=== PATIENT | male | born 1975 | race Caucasian/White ===

== ENCOUNTER → 2018-08-26 | Outpatient (CLI) | payer BC | LOC: ULTRA 10:12 | DX: I27.82 Chronic pulmonary embolism (principal); M79.89 Other specified soft tissue disorders; M79.605 Pain in left leg; R06.02 Shortness of breath ==

== ENCOUNTER → 2018-09-02 | Outpatient (CLI) | payer BC | LOC: ULTRA 12:50 | DX: N63.10 Unspecified lump in the right breast, unspecified quadrant (principal) ==

== ENCOUNTER → 2021-02-22 | Outpatient (CLI) | payer BC ==
[~2021-02-22] VITALS: Ht 182.9 cm; Wt 99.8 kg
[~2021-02-22] MED LIST: CHILDREN'S ASPI81 M1 PO; QVAR REDIHALE10.6 GM INH; UNICOMPLEX M TA1 TA1 PO; ZESTRIL40 MG PO
[2021-02-22 08:07] VITALS: BP 142/92
--- NOTE | 2021-02-22 08:18 | NUR ---
Pain Clinic Assessment: 1. History of Osteoarthritis: RIGHT ELBOW History of Rheumatoid Arthritis: Not Applicable 2. Height: 6 ft. in. 182.9 cm. Weight: 220.0 lb. oz. 99.792 kg. Patient's BMI: 29.8 3. Vital Signs: BP: 142/92 Pulse: 78 Resp: 20 Temp: 02 Sat: 98 ECG Mon: 4. Pain Intensity: 4 5. Fall Risk: Dizziness: N Needs help standing or walking: N Fallen in the last 3 months: N Fall risk comments: 6. Patient on Blood Thinner: None 7. History of Hypertension: Y 8. Opioid Therapy greater than 6 weeks: N Opiate Contract Signed: 9. Risk Assessment Tool Provided: 0-LOW RISK 10. Functional Assessment Tool: 11. Recreational Drug Use: Never Drug Type: Tobacco Use: Never Smoker Tobacco Type: Amount or Packs/day: How Many Years: Alcohol Use: Yes Frequency: Weekly Quant: ABOUT 6
--- NOTE | 2021-03-01 07:49 | HPC ---
[facility] [place] [address] PAIN MANAGEMENT CONSULTATION Name: JEF CASTAÑEDA [facility] #[facility] [id number] Admission: 02/22/21 Attend Phys: Marcos Gonzalez DO Discharge: Date of : 77 Report #: [id number] THIS REPORT FOR: cc: Emma Foley MD, Nora P. MD Johnson, James E. DO ~ DOC #: [id number] cc: OTIS Donaldson DO DATE OF SERVICE: 02/22/2021 REFERRING SUPPLY TECHNICIAN: Rin Alcantara. CHIEF COMPLAINT: Neck pain, left upper extremity pain with paresthesias. HISTORY OF PRESENT ILLNESS: As you know, the patient is a very pleasant 45-year-old male who reports acute onset of neck pain, left upper extremity pain with paresthesias that presented approximately 3 months ago. He has had intermittent electrical like shooting sensations that radiate from the neck to just below the elbow on a classic C5 dermatomal distribution. The patient has trialed conservative treatment, undergoing physical therapy for which he continues to be seen with PT with improvement in symptoms. It has been somewhat helpful, but he continues to experience intermittent symptoms such that the patient then sought further evaluation through his primary care physician who sent him off for MRI imaging. MRI was obtained, yet the patient has not been able to return to see the primary team to review those findings. He was subsequently referred to our clinic. The patient reports today his pain is intermittent and momentary. He describes the pain as shooting, sharp, stabbing, numbness and tingling. Places current pain score 4/10, daily average of 5-6/10. Worst pain has been a 7-8/10. The patient states pain is exacerbated with any type of movement, improves with rest and relaxation. He has noted some improvement with traction at physical therapy. He has been referred to our service to discuss treatment options for cervical radiculopathy, unresponsive to physical therapy and conservative [id number] medication management. PAST MEDICAL HISTORY: 1. Hypertension. 2. Asthma. 3. Osteoarthritis. PAST SURGICAL HISTORY: Left elbow surgery. SOCIAL HISTORY: The patient denies tobacco, IV or illicit drug use. Admits to one alcoholic beverage per day. He is working, not receiving workmenSensipasss [address] [address] PAIN MANAGEMENT CONSULTATION Name: JEF CASTAÑEDA Room #: REG [facility].#: [id number] Admission: 02/22/21 Attend Phys: Marcos Gonzalez DO Discharge: Date of : 77 Report #: [id number] compensation nor is he trying to obtain disability benefits. He is not in litigation in regards to the pain. He is unaccompanied at today's visit. REVIEW OF SYSTEMS: Positive for neck pain, left upper extremity pain with paresthesias, hearing loss with tinnitus, asthma, wheezing, hypertension. All other review of systems negative per 12-point review of systems other than those listed in history of present illness. Pain impact score 29/70 indicating moderate interference of daily activities secondary to pain. ALLERGIES: MUSCLE RELAXANTS. CURRENT MEDICATIONS: Lisinopril 40 mg once a day, aspirin 81 mg per day, Qvar inhaled twice a day, multivitamin one tab per day. IMAGING: MRI of the cervical spine obtained 02/14/2021 shows C2-C3 unremarkable, C3-C4 unremarkable, C4-C5 shows moderate left and mild right neural foraminal stenosis. There is no mass effect upon the central canal. C5-C6 shows uncovertebral spurring, mild left and moderate right neural foraminal narrowing. C6-C7 unremarkable. C7-T1 unremarkable. PHYSICAL EXAMINATION: VITAL SIGNS: Blood pressure 142/92, pulse 78, respiratory rate 20, unlabored. The patient 98% on room air, height 6 feet tall, weight 220 pounds, BMI calculated 29.8. GENERAL: Well-developed, well-nourished, well-hydrated 45-year-old male appearing stated age, placing current pain score 4/10. HEENT: Normocephalic, atraumatic. Pupils are round and responsive. Extraocular muscles are intact. The patient is wearing a mask in compliance with COVID-19 regulations. LUNGS: Appear clear. There is no audible wheezing, rhonchi or rales. No cough. No respiratory depression or stress. HEART: Regular. No appreciable gallop, no rub. ABDOMEN: Soft. EXTREMITIES: No clubbing, no cyanosis and no edema. MUSCULOSKELETAL: Upper extremity strength equal and symmetrical 5/5. Muscle bulk and tone equal and symmetrical in comparing left upper extremity to right. Spurling's test positive on the left, negative right. Cervical provocation testing with lateral flexion to the left causes typical electrical-like sensation radiating just distal to the elbow consistent with a C5 dermatome. Rotation to the left causes intensification of neck pain. No radiation of symptoms. Symptoms are resolved with rotation to the right or lateral flexion to the right. Muscle bulk and tone is equal and symmetrical in upper extremities. He is intact to light touch from C5 through T1 dermatomes. Deep tendon reflexes are equal and symmetrical at biceps, brachioradialis and triceps. [address] [address] PAIN MANAGEMENT CONSULTATION Name: JEF CASTAÑEDA [facility] [id number] Admission: 02/22/21 Attend Phys: Marcos Gonzalez DO Discharge: Date of : 77 Report #: [id number] IMPRESSION: 1. Cervical radiculopathy. 2. Foraminal stenosis of the cervical spine. PLAN: 1. Based on today's physical exam and the history the patient has provided, the description the patient uses in regards to pain as well as the distribution of symptoms, it would appear the patient is suffering from a C5 dermatomal cervical radiculopathy involving the left upper extremity consistent with the findings of his MRI. We have discussed with the patient in its entirety the MRI that was obtained earlier this month. We have reviewed this with the patient over a 20-minute period of time reviewing not only the formalized documentation, but also the imaging study with the patient. After this discussion, we then discussed treatment options for his cervical radiculopathy involving the C5 dermatome. Following discussion was had with the patient today. We discussed physical therapy to address traction technique specifically and trained traction techniques for home use. We discussed medication management, adding neuropathic pain medication such as amitriptyline, nortriptyline, Cymbalta, Lyrica or gabapentin. We discussed cervical epidural injections under fluoroscopic guidance and ultimately surgical decompression of the neural foramen of the C5-C6 level. After reviewing the risks and benefits of all the proposed treatment options, the patient chose to begin with a cervical epidural injection under fluoroscopic guidance. 2. The patient will be provided an appointment tomorrow morning at 8:00 a.m. to undergo cervical epidural injection. He will be able to clear his scheduled for the rest of the day, so that he can go home, rest and relax after the procedure. We have made the patient the appointment tomorrow morning. We will keep you apprised of his response. 3. No medication changes made at today's visit. The patient will continue current medical therapy as prior prescribed. 4. We will see the patient tomorrow morning, 02/23, 8:00 a.m. to undergo cervical epidural injection under fluoroscopic guidance to address cervical radiculopathy. 5. We wish to thank, Rin Alcantara, for the opportunity to see this patient in consultation. We will keep you apprised of his response to treatment as we address cervical radiculopathy. Again, we wish to thank you for the opportunity to see him in consultation. Marcos Gonzalez DO JEJ/[place] [address] PAIN MANAGEMENT CONSULTATION Name: CASTAÑEDAJEF Room #: REG CLI Sari#: [id number] Admission: 02/22/21 Attend Phys: Marcos Gonzalez DO Discharge: Date of : 77 Report #: [id number] <ELECTRONICALLY SIGNED> By: Marcos Gonzalez DO 03/01/21 0749 [id number] 2249 Marcos Gonzalez DO /jona
== END ==
LOC: PAIN 07:07
PROVIDERS: ATTEND Anesthesiology Pain Medicine
DX: M54.12 Radiculopathy, cervical region (principal); M79.641 Pain in right hand

== ENCOUNTER → 2021-02-23 | Outpatient (CLI) | payer BC ==
[~2021-02-23] VITALS: Ht 182.9 cm; Wt 104.9 kg
[2021-02-23 08:08] VITALS: BP 126/84
--- NOTE | 2021-02-23 08:12 | NUR ---
Pain Clinic Assessment: 1. History of Osteoarthritis: RIGHT ELBOW History of Rheumatoid Arthritis: Not Applicable 2. Height: 6 ft. 0 in. 182.9 cm. Weight: 231.2 lb. oz. 104.872 kg. Patient's BMI: 31.3 3. Vital Signs: BP: 126/84 Pulse: 79 Resp: 16 Temp: 02 Sat: 100 ECG Mon: 4. Pain Intensity: 7 5. Fall Risk: Dizziness: N Needs help standing or walking: N Fallen in the last 3 months: N Fall risk comments: 6. Patient on Blood Thinner: None 7. History of Hypertension: Y 8. Opioid Therapy greater than 6 weeks: N Opiate Contract Signed: 9. Risk Assessment Tool Provided: 0-LOW RISK 10. Functional Assessment Tool: 11. Recreational Drug Use: Never Drug Type: Tobacco Use: Never Smoker Tobacco Type: Amount or Packs/day: How Many Years: Alcohol Use: Yes Frequency: Weekly Quant: 3
--- NOTE | 2021-03-01 11:26 | HPC ---
[facility] [place] [address] PAIN MANAGEMENT CONSULTATION Name: JEF CASTAÑEDA Room #: REG [facility].#: [id number] Admission: 02/23/21 Attend Phys: Marcos Gonzalez DO Discharge: Date of : 77 Report #: [id number] THIS REPORT FOR: cc: Emma Foley MD, Nora P. MD Johnson, James E. DO ~ DOC #: [id number] cc: OTIS Donaldson DO DATE OF SERVICE: 02/23/2021 REFERRING PHYSICIAN: Rin Alcantara NP CHIEF COMPLAINT: Neck pain, left upper extremity pain with paresthesias. HISTORY OF PRESENT ILLNESS: As you know, the patient is a 45-year-old male seen yesterday in clinic, diagnosed with cervical radiculopathy. We have obtained authorization for the patient to undergo cervical epidural injection after we had discussed the various treatment options we had available to treat cervical radicular symptoms. The patient made today's appointment to undergo the first in a series of cervical epidural injections. There has been no change in medical management since our last visit of yesterday afternoon. He returns today for the first in the series of injections. ALLERGIES: MUSCLE RELAXANT. CURRENT MEDICATIONS: Lisinopril, aspirin, QVAR, and multivitamins. SOCIAL HISTORY: The patient denies tobacco use. Denies IV or illicit drug use. Admits to occasional alcohol beverage. He is working, not receiving workmen's compensation, unaccompanied today. IMAGING: No imaging available. PHYSICAL EXAMINATION: VITAL SIGNS: Blood pressure 126/84, pulse 79, respiratory rate 16 and unlabored. The patient 100% on room air, height 6 feet tall, weight 231.2 pounds, BMI calculated 31.3. GENERAL: Well-developed, well-nourished, well-hydrated 45-year-old male appearing stated age. Pain is rated around 7/10. HEENT: Normocephalic, atraumatic. Pupils are round and responsive. EXTREMITIES: Show no clubbing, no cyanosis. No appreciable edema. MUSCULOSKELETAL: Upper extremity strength equal and symmetrical 5/5, intact to light touch from a C5-T1 dermatomes. Spurling's test positive left. ASSESSMENT: [address] [address] PAIN MANAGEMENT CONSULTATION Name: JEF CASTAÑEDA Mirta Room #: REG [facility]#: [id number] Admission: 02/23/21 Attend Phys: Marcos Gonzalez DO Discharge: Date of : 77 Report #: [id number] 1. Cervical radiculopathy. 2. Cervical facet arthropathy. 3. Neural foraminal stenosis of the cervical spine. PLAN: 1. The patient returns today in followup visit to undergo the first in a series of cervical epidural injections under fluoroscopic guidance. The patient is placing current pain score at 7/10. The patient has been advised of the risks and the benefits of a cervical epidural injection. These risks include but are not necessarily limited to bleeding, bruising, infection, worsening pain, no relief of pain, also risk of temporary or permanent, muscle weakness, temporary or permanent nerve damage causing possible paralysis, and . The patient states he understood and wished to proceed. 2. No medication changes made at today's visit. The patient will continue current medical therapy as prior prescribed. 3. We plan to see the patient back for a followup visit in one month. At that time, review the efficacy of today's cervical epidural injection and determine if next in the series of cervical epidural injections would be recommended. PROCEDURE NOTE DESCRIPTION OF PROCEDURE: C7-T1 cervical epidural steroid injection under fluoroscopic guidance. This is the first procedure of the first series that the patient is undergoing. After obtaining written consent, the patient was taken back to the fluoroscopy suite and placed in a prone position with separate pillows under chest and forehead to decrease cervical lordosis. The skin overlying the cervical area was prepped and draped in an aseptic fashion. The C7-T1 vertebral interspace was identified by AP fluoroscopy. The skin and subcutaneous tissue overlying the target site of injection was anesthetized using 3 mL of 1% lidocaine. A 20-gauge 3-1/2 inch Tuohy needle was advanced under fluoroscopic guidance toward the epidural space using a midline approach. The epidural space was identified using a loss of resistance to air technique. After negative aspiration for heme or cerebrospinal fluid, a total of 1 mL of Omnipaque was injected. A cervical epidurogram was confirmed using AP and oblique fluoroscopy. After negative aspiration for heme or cerebrospinal fluid, 5 mL solution containing 2 mL 40 mg per mL 80 mg total triamcinolone along with 3 mL of lidocaine 1% was injected in increments. Contrast spread was noted from posterior epidural space. The needle was then retracted approximately senior living and the needle track was flushed with 1 mL of 1% lidocaine. There were no apparent new sensory deficits in the upper extremities present following the procedure. A sterile bandage was placed over the injection site. [address] [address] PAIN MANAGEMENT CONSULTATION Name: JEF CASTAÑEDA Room #: REG [facility]#: [id number] Admission: 02/23/21 Attend Phys: Marcos Gonzalez DO Discharge: Date of : 77 Report #: [id number] The heart rate, pulse oximetry and blood pressure were continuously monitored after the procedure. There were no apparent complications. The patient tolerated the procedure well and was carefully escorted in the recovery room in stable condition. After meeting discharge criteria, the patient was discharged home. Marcos Gonzalez DO JEJ/RAH/KIRA <ELECTRONICALLY SIGNED> By: Marcos Gonzalez DO 03/01/21 1126 0734 0112 Marcos Gonzalez DO /nt
== END | disposition home or self-care (01) ==
LOC: PAIN 07:02
PROVIDERS: ATTEND Anesthesiology Pain Medicine
DX: M47.22 Other spondylosis with radiculopathy, cervical region (principal); M48.02 Spinal stenosis, cervical region; Z98.890 Other specified postprocedural states; Z79.899 Other long term (current) drug therapy; Z79.82 Long term (current) use of aspirin; Z88.8 Allergy status to other drugs, medicaments and biological substances

== ENCOUNTER → 2021-03-15 | Outpatient (CLI) | payer BC ==
[~2021-03-15] VITALS: Ht 182.9 cm; Wt 103.3 kg
[~2021-03-15] MED LIST changes: +NEURONTIN 300M300 M2 PO; +TRAMADOL HCL50 MG PO; +VOLTAREN 50MG T50 MG PO
[2021-03-15 08:20] VITALS: BP 137/90
--- NOTE | 2021-03-15 08:27 | NUR ---
Pain Clinic Assessment: 1. History of Osteoarthritis: RIGHT ELBOW History of Rheumatoid Arthritis: Not Applicable 2. Height: 6 ft. 0 in. 182.9 cm. Weight: 227.8 lb. oz. 103.330 kg. Patient's BMI: 30.9 3. Vital Signs: BP: 137/90 Pulse: 78 Resp: 16 Temp: 02 Sat: 100 ECG Mon: 4. Pain Intensity: 7 5. Fall Risk: Dizziness: N Needs help standing or walking: N Fallen in the last 3 months: N Fall risk comments: 6. Patient on Blood Thinner: None 7. History of Hypertension: Y 8. Opioid Therapy greater than 6 weeks: N Opiate Contract Signed: 9. Risk Assessment Tool Provided: 0-LOW RISK 10. Functional Assessment Tool: 11. Recreational Drug Use: Never Drug Type: Tobacco Use: Never Smoker Tobacco Type: Amount or Packs/day: How Many Years: Alcohol Use: Yes Frequency: Special Occasions Quant: 2-3
--- NOTE | 2021-03-16 08:22 | HPC ---
[facility] [place] [address] PAIN MANAGEMENT CONSULTATION Name: JEF CASTAÑEDA Room #: REG [facility].#: [id number] Admission: 03/15/21 Attend Phys: Marcos Gonzalez DO Discharge: Date of : 77 Report #: [id number] THIS REPORT FOR: cc: Emma Foley MD,Marcos Ramsey MD, DO ~ DOC #: [id number] cc: Emma Foley MD, OTIS Donaldson DO DATE OF SERVICE: 03/15/2021 DATE OF SERVICE: 03/15/2021 CHIEF COMPLAINT: Neck pain, left upper extremity pain with paresthesias. HISTORY OF PRESENT ILLNESS: As you know, the patient is a very pleasant 45-year-old male who has undergone cervical epidural injection under fluoroscopic guidance at the last visit of 02/23/2021. He reports a 100% improvement in overall pain, but only lasting for 2-3 days. Unfortunately, his symptoms recurred quite quickly. He returns today in followup visit to discuss treatment options. He is placing current pain score around 7/10. He states his pain instantly return once he returned to his normal work activity, which was 3 days after the cervical epidural injection, but prior to that, he was doing very well. He denies injury or trauma or any changes in medical history since his last visit. ALLERGIES: MUSCLE RELAXANTS. CURRENT MEDICATIONS: Lisinopril, aspirin, QVAR and multivitamins. SOCIAL HISTORY: The patient denies tobacco use. Denies IV or illicit drug use. Admits to occasional alcohol beverage. He is working, not receiving workmen's compensation, unaccompanied today. IMAGING: No new imaging available. PHYSICAL EXAMINATION: VITAL SIGNS: Blood pressure 137/90, pulse 78, respiratory rate 16 and unlabored. The patient 100% on room air, height 6 feet tall, weight 227.8 pounds, BMI calculated 30.9. GENERAL: Well-developed, well-nourished, well-hydrated 45-year-old male appearing stated age, pain is rated today, 7/10. HEENT: Normocephalic, atraumatic. Pupils equal, round and responsive. He is wearing a mask in compliance with COVID-19 regulations. EXTREMITIES: Show no clubbing, no cyanosis, no edema. MUSCULOSKELETAL: Upper extremity strength equal and symmetrical 5/5 intact [facility] [address] [place] [address] PAIN MANAGEMENT CONSULTATION Name: JEF CASTAÑEDA Room #: REG [facility]#: [id number] Admission: 03/15/21 Attend Phys: Marcos Gonzalez DO Discharge: Date of : 77 Report #: [id number] again to light touch from C5-T1 dermatomes. Spurling's test remains positive left. Muscle bulk and tone is equal and symmetrical in upper extremities. ASSESSMENT: 1. Cervical radiculopathy. 2. Cervical facet arthropathy. 3. Neural foraminal stenosis of the cervical spine. 4. Chronic neck pain. PLAN: 1. The patient returns today in followup visit having noted only transient improvement in symptoms with the cervical epidural injection. Unfortunately, I feel that cervical epidural injections will not be the treatment options that will improve the patient's pain long-term. We discussed with the patient today. The other treatment options, we have available. I am not going to preclude the possibility of having the patient undergo next in the series of cervical epidural injections, but given the lack of long-term efficacy, I would recommend a more conservative approach initially if this is ineffective, then we can look towards possible repeat epidural injection or even surgical options. The patient is agreeable with plan. 2. We will start the patient on gabapentin 300 mg dose. He will start 1 tab p.o. at bedtime for 3 nights, then increase to 2 tabs p.o. at bedtime for 3 nights. If no side effects of sleepiness, disorientation, confusion, mental slowing then increase to 3 tabs p.o. at bedtime. If no improvement in symptoms, no side effects, then begin titrating in the morning hours to reach 900 mg b.i.d. He was given #180 tablets of the 300 mg gabapentin to begin the titration. The patient was advised anytime during the titration. He rates improvement in symptoms stabilize at that dose, no further escalation. If the patient is having side effects with the medication. He is to reduce to the dose prior and contact our clinic for suggestions on treatment. 3. We recommend the patient start a consistent nonsteroidal anti-inflammatory. We will be using diclofenac sodium 50 mg dose. This is a coated tablet, which will provide some gastric protection. I have given the patient, #90 tablets, 2 refills. The patient was advised to take no other nonsteroidal anti-inflammatories with this medication. He is to take the medication with meal. I eat breakfast, lunch and dinner. He was given #90 tablets, 2 refills. If he is having side effects of dyspepsia, worsening of blood pressure, lower extremity edema discontinue the medication and call for further instructions. 4. The patient was provided a prescription of tramadol 50 mg dose 1 tab p.o. t.i.d. This will provide baseline pain control when symptoms are uncontrolled by the gabapentin, diclofenac combination. I have given the patient 2 refills, 3 months' worth of medication. He is to watch for any side effects with its use. He is not to drive or operate heavy equipment while on this medication until he knows how he will respond. 5. We plan to see the patient back in followup visit in 3 months, assuming good efficacy with medications. Otherwise, we will see him back earlier to undergo a [facility] [address] [place] [address] PAIN MANAGEMENT CONSULTATION Name: GARRYJEF Mirta Room #: REG CL Sari#: [id number] Admission: 03/15/21 Attend Phys: Marcos Gonzalez DO Discharge: Date of : 77 Report #: [id number] potential interventional treatments to address neck pain if necessary. Marcos Gonzalez DO JEJ/SOLEDAD <ELECTRONICALLY SIGNED> By: Marcos Gonzalez DO 03/16/21 0822 [id number] 2244 Marcos Gonzalez DO /nt
== END ==
LOC: PAIN 07:26
PROVIDERS: ATTEND Anesthesiology Pain Medicine
DX: M54.12 Radiculopathy, cervical region (principal); M48.02 Spinal stenosis, cervical region; Z79.891 Long term (current) use of opiate analgesic; Z79.899 Other long term (current) drug therapy

== ENCOUNTER → 2021-04-25 | Outpatient (CLI) | payer BC | LOC: ULTRA 14:17 | PROVIDERS: ATTEND Nurse Practitioner | DX: N50.812 Left testicular pain (principal) ==